=== PATIENT | female | born 1935 | race Caucasian/White ===

== ENCOUNTER → 2017-06-09 | Day surgery (SDC) | payer OTHER ==
--- NOTE | 2017-06-12 15:04 | PATH ---
Surgical Pathology Report Patient Name: ADI RUST Med. Rec. #: [id number] /Age/Gender: 1935 (Age: 81) / F Account: [id number] Location: [facility] BREAST CENT Taken: 06/09/2017 Received: 06/09/2017 Reported: 06/12/2017 Physicians: Davidson Doe M.D. Specimen(s) Received BREAST CORE BIOPSY RIGHT CHEST WALL Clinical History Palpable mass status post mastectomy Ultrasound findings: Suspicious Final Diagnosis CHEST WALL, RIGHT, CORE BIOPSY: FIBROADIPOSE TISSUE WITH DENSE FIBROSIS, FIBROHISTIOCYTIC AND FOCAL GIANT CELL REACTION. NEGATIVE FOR CARCINOMA. Comment: Immunohistochemical stains performed and interpreted at [facility] for CK7 is utilized to evaluate this case. History of invasive lobular carcinoma (breast) is noted. Electronically Signed Zulay Stewart M.D. Gross Description Received in formalin labeled "right chest wall," are 6 barba-yellow, cylindrical portions of fibroadipose tissue ranging from 0.7-2.0 cm in length and averaging 0.1 cm in diameter. The specimens are submitted in toto in one cassette. Time to formalin fixation: Less than one minute Total formalin fixation time: Approximately 7 hours. 06/09/201706/09/2017
--- NOTE | 2017-06-13 00:25 | OP ---
DATE OF OPERATION: 06/09/2017 PREOPERATIVE DIAGNOSIS: Right chest wall nodule. POSTOPERATIVE DIAGNOSIS: Right chest wall nodule. PROCEDURE: Right ultrasound guided core biopsy. ANESTHESIA: Local. ATTENDING SURGEON: Mary Lou Copeland M.D. ESTIMATED BLOOD LOSS: Minimal. COMPLICATIONS: None. PROCEDURE: Patient was made aware of the risks and benefits of the procedure. She was placed in the supine position under sterile conditions with 1% lidocaine for local anesthesia. A small riley was made in the skin. Using a 13-gauge suction via lateral approach. Under ultrasound guidance, multiple cores were obtained and submitted to pathology. Likewise under ultrasound guidance, clip was placed into the biopsy region. Well tolerated by patient. Steri-Strip and sterile bandage was applied. Will contact her with results. MARY LOU COPELAND M.D. [id number]
== END | disposition home or self-care (01) ==
LOC: FRADUS-SUR 13:37
PROVIDERS: ATTEND Surgery Surgical Oncology
PROC: 0KBF3ZX Excision of Right Trunk Muscle, Percutaneous Approach, Diagnostic (ICD-10-PCS; principal; 2017-06-09)
PROC: BH4BZZZ Ultrasonography of Chest Wall (ICD-10-PCS; 2017-06-09)
DX: D23.5 Other benign neoplasm of skin of trunk (principal); R22.2 Localized swelling, mass and lump, trunk
CPT/HCPCS: 76942-TC; 87899; 88305-TC; A4648